=== PATIENT | male | born 1960 | race Caucasian/White ===

== ENCOUNTER → 2022-06-04 | Outpatient (CLI) | payer OTHER ==
[~2022-06-04] MED LIST: ALBUTEROL 0.083% 2.5 MG/3 ML INH IH ONE
== END | disposition home or self-care (01) ==
LOC: EDBD 12:38 → RESP 12:38
PROVIDERS: ATTEND Internal Medicine Cardiovascular Disease
DX: I42.0 Dilated cardiomyopathy (principal); I50.22 Chronic systolic (congestive) heart failure; R06.02 Shortness of breath
CPT/HCPCS: 94060; 94727; 94729

== ENCOUNTER 2023-12-16 06:01 | Day surgery (SDC) | payer OTHER ==
[2023-12-14 11:24] LABS: BASOPHILS # (AUTO) 0.05 K/uL (0.00-0.20); BASOPHILS % (AUTO) 0.6 % (0.0-5.0); EOSINOPHILS # (AUTO) 0.17 K/uL (0.00-0.70); HEMATOCRIT 49.1 % (42-54); IMMATURE GRANULOCYTE ABSOLUTE 0.03 K/uL (0-1); LYMPHOCYTES % (AUTO) 36.2 % (21.0-51.0); MEAN CORPUSCULAR HEMOGLOBIN 29.7 pg (27.0-33.0); MEAN CORPUSCULAR HGB CONC 33.2 g/dL (32.0-36.0); MEAN CORPUSCULAR VOLUME 89.4 fL (79-99); MONOCYTES # (AUTO) 0.7 K/uL (0.1-1.0); MONOCYTES % (AUTO) 8.9 % (3.0-13.0); NEUTROPHILS # (AUTO) 4.3 K/uL (1.8-7.7); NEUTROPHILS % (AUTO) 51.9 % (40.0-77.0); PLATELET COUNT (AUTO) 226 K/uL (130-400); RED BLOOD CELL COUNT(AUTO) 5.49 MIL/uL (4.50-6.20); RED CELL DISTRIBUTION WIDTH 14.3 % (11.0-15.5); WHITE BLOOD COUNT (AUTO) 8.4 K/uL (4.8-10.8)
[2023-12-14 11:26] LABS: CREATININE 1.4 mg/dL (0.5-1.3); POTASSIUM 4.8 mmol/L (3.5-5.1)
[2023-12-14 11:45] LABS: INR 1.07 (0.85-1.15); PROTHROMBIN TIME 11.5 SEC (9.6-11.6)
[2023-12-14 11:47] LABS: PARTIAL THROMBOPLASTIN TIME 28.1 SEC (26.3-35.5)
[2023-12-14 12:02] VITALS: BP 128/94; PULSE 79; RESP 16
[2023-12-16] VITALS (7 sets, daily range): BP systolic 84–108; BP diastolic 59–78; PULSE 70–71; RESP 14–17
[~2023-12-16] VITALS: Ht 182.9 cm; Wt 90.6 kg
[~2023-12-16 06:01] MED LIST changes: -ALBUTEROL 0.083% 2.5 MG/3 ML INH IH ONE; +AMIO200T68 PO; +APIX5TAB PO; +ATOR40TA69 PO; +BIOT5000 PO; +CARV6.25 PO; +DOCU100C33 PO; +EMPA10TA PO; +FLUT1BLS3 IH; +FURO40TA5 PO; +GABA-529 PO; +LEVO112C4 PO; +OMEP40CA21 PO; +SACU1TAB PO; +SPIR25TA6 PO
[2023-12-16] MEDS ORDERED: 0.9%NACL 1000ML 1,000 ML IV ONE (06:28)
[2023-12-16] MEDS ORDERED: MEPERIDINE-PF 25 MG/ML SYG ONE ×2 (07:32→08:05)
[2023-12-16] MEDS ORDERED: MIDAZOLAM HCL 1 MG/ML 2ML VIAL ONE ×2 (07:32→08:05)
[2023-12-16] MEDS ORDERED: CEFAZOLIN SODIUM 1 GM VIAL ONE (07:32)
[2023-12-16] MEDS ORDERED: LIDOCAINE HCL 1% MDV 50ML VIAL ONE (07:32)
[2023-12-16] MEDS ORDERED: BUPIVACAINE/PF 0.25% 30ML VIAL IJ ONE (07:33)
[2023-12-16] MEDS ORDERED: EPHEDRINE SULFATE 50 MG/ML AMPULE ONE (07:47)
[2023-12-16] MEDS ORDERED: BACITRACIN 1 EACH PACKET TP ONE (08:19)
[2023-12-16] MEDS ORDERED: ACETAMINOPHEN WITH CODEINE 1 TAB TAB PO PRN (09:00)
[2023-12-16] MEDS ORDERED: ACETAMINOPHEN 500 MG TABLET PO PRN (09:00)
== END 2023-12-16 10:30 | disposition home or self-care (01) ==
LOC: DAH 06:01
PROVIDERS: ATTEND Internal Medicine Cardiovascular Disease
DX: Z45.02 Encounter for adjustment and management of automatic implantable cardiac defibrillator (principal); I42.0 Dilated cardiomyopathy; I11.0 Hypertensive heart disease with heart failure; I50.9 Heart failure, unspecified; E78.5 Hyperlipidemia, unspecified; Z79.01 Long term (current) use of anticoagulants; Z79.899 Other long term (current) drug therapy
CPT/HCPCS: 80048; 85025; 85610; 85730; 36415; 93005; 33264; 82948; C1882; J0690; J7030; J0665; J2250 ×2; J2175 ×2; J3490; A4215; A6251; A4222; A4221; A4663; A4216; A6258; A4606; A4223 ×3; 99156; 99157